=== PATIENT | female | born 1995 | race African-American/Black ===

== ENCOUNTER 2018-07-03 04:25 | Inpatient (IN) ==
[2018-07-03] MEDS ORDERED: fentaNYL Citrate Inj 100 MCG/2 ML Ampul IV.PUSH PRN (05:08)
[2018-07-03] MEDS ORDERED: Penicillin G Potassium Inj 5,000,000 UNIT in Sodium Chloride 0.9% Inj 100 ML IV.SIG ONE (05:08)
[2018-07-03] MEDS ORDERED: Naloxone Inj 0.4 MG/ML Vial IV.PUSH PRN ×2 (05:08→16:54)
[2018-07-03] MEDS ORDERED: Sodium Chlor 0.9% Inj 500 ML IV.SIG PRN (05:08)
[2018-07-03] MEDS ORDERED: Oxytocin 30 Units/500ml Premix 30 UNITS/500 ML BAG IV.SIG ONE (05:08)
[2018-07-03] MEDS ORDERED: Sod Chloride 0.9% Inj 1,000 ML IV.CONT PRN (05:08)
[2018-07-03] MEDS ORDERED: Citric Acid/Sodium Citrate Liq 30 ML UDC PO SCH (05:15)
--- NOTE | 2018-07-03 05:24 | P.HPOB ---
OB - Admission History and Physical Patient Name: Lisy Wilson Date of : 89 Patient Status: Inpatient Attending Provider: Melanie Pena Date: 07/03/18 05:23 Initialization Date: 07/03/18 05:13 History of Present Illness Service: [facility] [place] Primary Care Physician: NOT REQUIRED Chief Complaint: leaking fluid History of Present Illness: This 22 y/o female presents to the OB ED with c/o leaking fluid since approx 1 AM. She has continued to feel leaking so she came in. +FM, No VB, +ctxs every few min. She has hx of short cervix since 24 wks. She was hospitalized at that time and received 2 doses of steroids. She has been using vaginal progesterone. She had initial care with [facility] but then changed to [facility]. Weeks Gestation:: 35 Para: 0 : 1 Review of Systems All other systems reviewed negative except as stated in HPI PMFSH - History History Provided By: Patient - Medical / Surgical Hx Neg / Unobtainable Medical Problems Denied: Yes Surgical History: No Previous Surgery - Social History I have reviewed the patient's Social History: Yes - Tobacco History Smoking Status: Never smoker - Alcohol History How Often Do You Have a Drink Containing Alcohol: Never - Substance Use History Substance History: Past History - Substance Use Type Marijuana Comment: previous positive UDS - Travel History History of Recent Travel: No Medications and Allergies Active Medications: Active Medications Citric Acid/Sodium Citrate (Sodium Citrate/Citric Acid Liq) 30 ml PO TOOL AND DIE REPAIRER [facility] Stop: 07/07/18 05:14 Fentanyl Citrate (Fentanyl Inj) 50 mcg IV.PUSH Q1H PRN PRN Reason: Pain Scale 3 - 5 Fentanyl Citrate (Fentanyl Inj) 100 mcg IV.PUSH Q1H PRN PRN Reason: PAIN SCALE 6 TO 10 Lactated Ringer's (Lr 1000 Ml Inj) 1,000 mls @ 3,000 mls/hr IV.SIG UNSCH PRN PRN Reason: compromise or epidural Lactated Ringer's (Lr 1000 Ml Inj) 1,000 mls @ 125 mls/hr IV.CONT .Q8H [facility] Sodium Chloride (Ns Inj) 500 mls @ 1,000 mls/hr IV.SIG UNSCH PRN PRN Reason: SEE LABEL COMMENTS Sodium Chloride (Ns Inj) 1,000 mls @ 100 mls/hr IV.CONT .Q10H PRN PRN Reason: SEE LABEL COMMENTS Oxytocin (Pitocin 30 Units/Ns 500 Ml Premix) 30 units in 500 mls @ 999 mls/hr IV.SIG BOLUS ONE Stop: 07/03/18 05:38 Penicillin G Potassium 5,000, (000 unit/ Sodium Chloride) 100 mls @ 200 mls/hr IV.SIG ONCE ONE Stop: 07/03/18 05:37 Lidocaine HCl (Xylocaine 1% Inj) 0.1 ml I-DERMAL PRN PRN PRN Reason: For IV start Stop: 07/06/18 05:07 Lidocaine HCl (Xylocaine 1% Inj) 10 ml INFILTRATN PRN PRN PRN Reason: For episiotomy repair Stop: 07/05/18 05:07 Mineral Oil (Muri-Lube Oil) 10 ml TOPICAL PRN PRN PRN Reason: PRN perineal massage Naloxone HCl (Narcan Inj) 0.1 mg IV.PUSH Q2M PRN PRN Reason: for opiate reversal Ondansetron HCl (Zofran Inj) 4 mg IV.PUSH Q6H PRN PRN Reason: NAUSEA OR VOMITING Allergies Allergy/AdvReac Type Severity Reaction Status Date / Time No Known Allergies Allergy Verified 07/03/18 05:07 Exam Vital signs: Vital Signs 07/03/18 05:00 Temperature 98.7 F Pulse Rate 114 H Respiratory Rate 16 Blood Pressure 110/62 Intake & Output 07/02/18 07/02/18 07/03/18 06:59 18:59 06:59 Weight 78.925 kg Narrative: GENERAL: Well-nourished, well-developed patient. SKIN: Warm and dry. HEAD: Normocephalic and atraumatic. EYES: No scleral icterus. No injection or drainage. ENT: No nasal drainage noted. Mucous membranes pink. Airway patent. NECK: Supple, trachea midline. No JVD. CARDIOVASCULAR: Regular rate and rhythm without murmurs, gallops, or rubs. RESPIRATORY: Breath sounds equal bilaterally. No accessory muscle use. BREASTS: Bilateral exam showed no masses , no retractions, no nipple discharge. ABDOMEN/GI: Abdomen soft, non-tender, bowel sounds present, no rebound, no guarding Gravid to [35] weeks size GENITOURINARY: External Genitalia: intact and normal in appearance BUS glands: [normal] Cervix: [Post] Dilatation: [4] Effacement: [70] Station: [-1] Presentation: [vertex] Membranes: [ruptured] Uterine Contractions: [every 1-3 min] FHT's: Category: [1] Baseline: [140] Reactive: [Yes] Variability: [Mod] Decels: [None] +Accels EXTREMITIES: No cyanosis or edema. BACK: Nontender without obvious deformity. No CVA tenderness. NEUROLOGICAL: Awake and alert. Motor and sensory grossly within normal limits. Five out of 5 muscle strength in all muscle groups. Normal speech. Assessment and Plan - Diagnosis (1) PROM (premature rupture of membranes) Code(s): O42.90 - Premature rupture of membranes, unspecified as to length of time between rupture and onset of labor, unspecified weeks of gestation Status : Acute Qualifiers: PROM onset of labor timing: onset of labor within 24 hours of rupture PROM gestational age: -third trimester Qualified Code(s): O42.013 - premature rupture of membranes, onset of labor within 24 hours of rupture, third trimester (2) 35 weeks gestation of Code(s): Z3A.35 - 35 weeks gestation of Status: Acute - Plan Admit to Labor and Delivery Antibiotics Pitocin if needed Anticipate Discharge Plan - Physicians Team ED Provider: Melanie Pena Primary Care Provider: NOT REQUIRED, - Discharge Instructions Print Language: Romansh
[2018-07-03] MEDS: Azithromycin Inj 500 MG in Sodium Chlor 0.9% Inj 250 ML IV.SIG SCH (06:03)
[2018-07-03 06:04] LABS: Bilirubin,Urine Negative (Negative); Clarity,Urine Hazy (Clear); Color,Urine Straw (Yellw/Straw); Glucose,Urine (UA) Negative (Negative); Leukocyte Esterase,Urine Moderate (Negative); Mucus,Urine Few /lpf (Occasional); Nitrite,Urine Negative (Negative); Specific Gravity,Urine 1.005 (1.002-1.035); Squamous Epithelial Cell,Urine 6 /hpf (0-5)
[2018-07-03 06:05] LABS: Baso # (Auto) 0.1 th/mm3 (0.0-0.2); Baso % (Auto) 0.6 % (0.0-2.0); Eos # (Auto) 0.5 th/mm3 (0.0-0.4); Eos % (Auto) 5.2 % (0.0-4.0); Hematocrit 30.1 % (35.0-46.0); Hemoglobin 10.1 gm/dL (11.6-15.3); Lymph # (Auto) 2.4 th/mm3 (1.0-4.8); Lymph % (Auto) 23.2 % (9.0-44.0); Mean Corpuscular HGB Conc 33.7 % (32.0-36.0); Mean Corpuscular Hemoglobin 29.5 pg (27.0-34.0); Mean Corpuscular Volume 87.7 fL (80.0-100.0); Mean Platelet Volume 8.2 fL (7.0-11.0); Mono # (Auto) 0.9 th/mm3 (0.0-0.9); Mono % (Auto) 9.1 % (0.0-8.0); Neut # (Auto) 6.3 th/mm3 (1.8-7.7); Neut % (Auto) 61.9 % (16.0-70.0); Platelet Count 269 th/mm3 (150-450); Red Blood Count 3.43 mil/mm3 (4.00-5.30); Red Cell Distribution Width 12.8 % (11.6-17.2); White Blood Count 10.2 th/mm3 (4.0-11.0)
[2018-07-03] MEDS ORDERED: Oxytocin 30 Units/500ml Premix 30 UNITS/500 ML BAG IV.SIG PRN (07:06)
[2018-07-03] MEDS: Penicillin G Potassium Inj 2,500,000 UNIT in Sodium Chlor 0.9% Inj 100 ML IV.SIG SCH ×3 (09:44→15:38)
[2018-07-03] MEDS: fentaNYL Citrate Inj 100 MCG/2 ML Ampul IV.PUSH PRN ×5 (12:03→16:07)
--- NOTE | 2018-07-03 15:32 | P.OBGPN ---
Attending note: 22-year-old at [id number] is the third time that I have seen the patient today after receiving sign out. Informed by RN for bag present -AROM scant amount of fluid cervix is now 6 cm dilated 100% effaced +1 station with an OP presentation adequate pelvis. Patient and family made aware. Patient declines epidural for pain management. Continue to monitor maternal / status heart rate category 1
[2018-07-03] MEDS ORDERED: Diphtheria/Tetanus/Pertussis Vaccine Inj 0.5 ML Syringe IM ONE (16:00)
[2018-07-03] MEDS ORDERED: Measles/Mumps/Rubella Vaccine Inj 0.5 ML Vial SQ ONE (16:00)
[2018-07-03] MEDS ORDERED: Lidocaine 1% Inj 50 ML Vial ONE (16:16)
--- NOTE | 2018-07-03 16:39 | P.OBDELI ---
Weeks Gestation: 35 Patient Started Active Labor: Yes Artificial Rupture of Membrane: No (AROM - forebag) Anesthesia: Lidocaine local to perineum Episiotomy: none Vaginal Delivery: Normal Presentation: Occiput anterior Nuchal Cord: None Delayed Cord Clamping (45 sec): Yes Placenta: Spontaneous delivery (abruption - 10 %), Uterus explored + Laceration: Vaginal, 1 deg Repair: Chromic running Estimated blood loss (mL): 100 Infant: Female Additional Information: Of note patient did finally agree to anabolic prophylaxis after public relations counselor regarding 2 complications of group B strep. [facility] team present baby most likely going to NICU
[2018-07-03] MEDS ORDERED: Oxytocin 30 Units/500ml Premix 30 UNITS/500 ML BAG IV.CONT PRN (16:54)
[2018-07-03] MEDS ORDERED: Zolpidem Tartrate 5 MG Tablet PO PRN (16:54)
[2018-07-03] MEDS ORDERED: Acetaminophen 325 MG Tablet PO PRN (16:54)
[2018-07-03] MEDS ORDERED: Bisacodyl 10 MG Supp RECTAL PRN (16:54)
[2018-07-03] MEDS: Benzocaine 20% Top Spray 60 ML Can TOPICAL PRN (21:54)
[2018-07-03] MEDS: Witch Hazel 50%/Glyderin 12.5% 40 Pad Jar RECTAL PRN (21:54)
[2018-07-03] MEDS: Senna/Docusate Sodium 8.6/50 MG Tablet PO SCH (21:55)
[2018-07-04] MEDS: Azithromycin Inj 500 MG in Sodium Chlor 0.9% Inj 250 ML IV.SIG SCH (06:21)
--- NOTE | 2018-07-04 07:21 | P.PNOB ---
Subjective Post day: 1 Interval history: Patient is day 1 after spontaneous vaginal delivery. Patient's pain is not well-controlled w/Motrin, states she is having intense pain in her vagina , especially while moving around. Patient reports eating and drinking without any nausea or vomiting. Patient reports minimal bleeding. Patient has passed gas but no bowel movements. Patient is walking without lower extremity pain or shortness of breath. Patient is breast-feeding. Objective Vital Signs/I&O: Vital Signs 07/03/18 07:35 07/03/18 08:26 07/03/18 09:00 Temperature Pulse Rate 109 H 101 H Respiratory Rate 18 Blood Pressure 88/40 L 123/70 07/03/18 09:30 07/03/18 10:40 07/03/18 10:45 Temperature 99.6 F Pulse Rate 125 H Respiratory Rate 18 Blood Pressure 113/84 07/03/18 11:19 07/03/18 12:13 07/03/18 12:15 Temperature 97.4 F L Pulse Rate 97 H 133 H Respiratory Rate 18 Blood Pressure 99/59 L 111/73 07/03/18 13:54 07/03/18 13:57 07/03/18 14:00 Temperature 98.1 F Pulse Rate 99 H Respiratory Rate 18 Blood Pressure 103/57 L 07/03/18 15:11 07/03/18 16:45 07/03/18 16:54 Temperature Pulse Rate 103 H 104 H Respiratory Rate 18 Blood Pressure 105/48 L 117/69 07/03/18 17:00 07/03/18 17:05 07/03/18 17:31 Temperature 98.0 F Pulse Rate 104 H 97 H Respiratory Rate 18 Blood Pressure 103/64 115/76 07/03/18 19:47 Temperature 98.0 F Pulse Rate 101 H Respiratory Rate 20 Blood Pressure 114/66 Intake & Output 07/03/18 07/04/18 07/04/18 18:59 06:59 18:59 Intake Total 1100 / 1100 Balance 1100 / 1100 Intake: IV 1100 / 1100 LR 1000 mL Inj 1,000 ML @ 125 1000 / 1000 mls/hr IV.CONT .Q8H [facility] Rx#: [id number] Pfizerpen-G Inj 2,500,000 UNIT 100 / 100 In NS Inj 100 ML @ 200 mls/hr IV.SIG Q4H [facility] Rx#:[id number] Result Diagrams: 07/03/18 05:30 Objective Remarks: GENERAL: Well-nourished, well-developed patient. CARDIOVASCULAR: Regular rate and rhythm without murmurs, gallops, or rubs. RESPIRATORY: Breath sounds equal bilaterally. No accessory muscle use. ABDOMEN/GI: Abdomen soft, non-tender. Fundus: Firm, non-tender at umbilicus. GENITOURINARY: Light to moderate bleeding. EXTREMITIES: No cyanosis or edema, non-tender, without signs of DVT. Medications and IVs: Active Medications Acetaminophen (Tylenol) 650 mg PO Q4H PRN PRN Reason: PAIN SCALE 1 TO 2 Al Hydroxide/Mg Hydroxide (Milk Of Magnesia Liq) 30 ml PO Q12H PRN PRN Reason: Mild Constipation Benzocaine (Americaine 20% Top [place]) 1 spray TOPICAL Q4H PRN PRN Reason: For Perineum Discomfort Last Admin: 07/03/18 21:54 Dose: 1 spray Bisacodyl (Dulcolax Supp) 10 mg RECTAL DAILY PRN PRN Reason: SEVERE CONSITIPATION Calcium Gluconate (Calcium Gluconate Inj) 1 gm IV.PUSH ONCE PRN PRN Reason: Magnesium toxicity Azithromycin 500 mg/ Sodium (Chloride) 250 mls @ 250 mls/hr IV.SIG Q24H [facility] Stop: 07/05/18 05:59 Last Admin: 07/04/18 06:21 Dose: Not Given Penicillin G Potassium 2,500, (000 unit/ Sodium Chloride) 100 mls @ 200 mls/hr IV.SIG Q4H [facility] Last Admin: 07/03/18 15:38 Dose: 200 mls/hr Oxytocin (Pitocin 30 Units/Ns 500 Ml Premix) 30 units in 500 mls @ 2 mls/hr IV.SIG TITRATE PRN; Protocol PRN Reason: For induction of labor Last Admin: 07/03/18 07:39 Dose: 2 milliunit/min, 2 mls/hr Oxytocin (Pitocin 30 Units/Ns 500 Ml Premix) 30 units in 500 mls @ 100 mls/hr IV.CONT UNSCH PRN PRN Reason: Heavy bleeding Ibuprofen (Motrin) 800 mg PO Q8H PRN PRN Reason: For Cramping Last Admin: 07/04/18 04:45 Dose: 800 mg Lactulose (Lactulose Liq) 30 ml PO DAILY PRN PRN Reason: SEVERE CONSITIPATION Naloxone HCl (Narcan Inj) 0.1 mg IV.PUSH Q2M PRN PRN Reason: for opiate reversal Ondansetron HCl (Zofran Odt) 4 mg PO Q6H PRN PRN Reason: NAUSEA OR VOMITING Senna/Docusate Sodium (Lisa-Colace) 1 tab PO BID [facility] Last Admin: 07/03/18 21:55 Dose: 1 tab Sennosides (Senokot) 17.2 mg PO Q12H PRN PRN Reason: Moderate Constipation Sodium Chloride (Ns Flush) 2 ml IV.FLUSH BID [facility] Last Admin: 07/03/18 21:55 Dose: 2 ml Sodium Chloride (Ns Flush) 2 ml IV.FLUSH PRN PRN PRN Reason: FLUSH AFTER USING IV ACCESS Witch Jazmin/Glycerin (Tucks Pads) 1 applicatio RECTAL QID PRN PRN Reason: HEMORRHOIDS Last Admin: 07/03/18 21:54 Dose: 1 applicatio Zolpidem Tartrate (Ambien) 5 mg PO HS PRN PRN Reason: SLEEP Assessment and Plan - Diagnosis (1) (normal spontaneous vaginal delivery) Code(s): O80 - Encounter for full-term uncomplicated delivery Status: Acute - Plan Patient is day 1 after . Patient was counseled to do 6 weeks of pelvic rest. Patient was counseled to follow up in 6 weeks. Patient requested follow-up and contraception. --AF VSS --Continue routine care --Motrin, ice packs and witch jazmin to perineum, and sitz baths when necessary for pain --Encourage OOB --Pelvic rest for 6 weeks will need follow-up appointment at that time. --Contraception: abstinence for now --Anticipate discharge tomorrow
[2018-07-04] MEDS: Senna/Docusate Sodium 8.6/50 MG Tablet PO SCH ×2 (12:51→20:43)
[2018-07-04 20:12] VITALS: RESP 18
[2018-07-05] MEDS: Witch Hazel 50%/Glyderin 12.5% 40 Pad Jar RECTAL PRN ×2 (03:08→15:45)
[2018-07-05] MEDS: Benzocaine 20% Top Spray 60 ML Can TOPICAL PRN ×2 (03:08→15:45)
[2018-07-05 07:21] VITALS: BP 140/86; PULSE 102; TEMP 98.5
--- NOTE | 2018-07-05 08:53 | P.PNOB ---
Subjective Post day: 2 Interval history: Patient is day 2 after . Patient's pain is well-controlled. Patient reports eating and drinking without any nausea or vomiting. Patient reports minimal bleeding. Patient has passed gas but no bowel movements. Patient is walking without lower extremity pain or shortness of breath. Objective Vital Signs/I&O: Vital Signs 07/04/18 20:00 07/05/18 07:05 Temperature 98.2 F 98.5 F Pulse Rate 69 102 H Respiratory Rate 18 18 Blood Pressure 118/75 140/86 Result Diagrams: 07/03/18 05:30 Objective Remarks: GENERAL: Well-nourished, well-developed patient. CARDIOVASCULAR: Regular rate and rhythm without murmurs, gallops, or rubs. RESPIRATORY: Breath sounds equal bilaterally. No accessory muscle use. ABDOMEN/GI: Abdomen soft, non-tender. Fundus: Firm, non-tender at umbilicus. GENITOURINARY: Light to moderate bleeding. EXTREMITIES: No cyanosis or edema, non-tender, without signs of DVT. Medications and IVs: Active Medications Acetaminophen (Tylenol) 650 mg PO Q4H PRN PRN Reason: PAIN SCALE 1 TO 2 Al Hydroxide/Mg Hydroxide (Milk Of Magnesia Liq) 30 ml PO Q12H PRN PRN Reason: Mild Constipation Benzocaine (Americaine 20% Top [place]) 1 spray TOPICAL Q4H PRN PRN Reason: For Perineum Discomfort Last Admin: 07/05/18 03:08 Dose: 1 spray Bisacodyl (Dulcolax Supp) 10 mg RECTAL DAILY PRN PRN Reason: SEVERE CONSITIPATION Calcium Gluconate (Calcium Gluconate Inj) 1 gm IV.PUSH ONCE PRN PRN Reason: Magnesium toxicity Penicillin G Potassium 2,500, (000 unit/ Sodium Chloride) 100 mls @ 200 mls/hr IV.SIG Q4H [facility] Last Admin: 07/03/18 15:38 Dose: 200 mls/hr Oxytocin (Pitocin 30 Units/Ns 500 Ml Premix) 30 units in 500 mls @ 2 mls/hr IV.SIG TITRATE PRN; Protocol PRN Reason: For induction of labor Last Admin: 07/03/18 07:39 Dose: 2 milliunit/min, 2 mls/hr Oxytocin (Pitocin 30 Units/Ns 500 Ml Premix) 30 units in 500 mls @ 100 mls/hr IV.CONT UNSCH PRN PRN Reason: Heavy bleeding Ibuprofen (Motrin) 800 mg PO Q8H PRN PRN Reason: For Cramping Last Admin: 07/04/18 20:43 Dose: 800 mg Lactulose (Lactulose Liq) 30 ml PO DAILY PRN PRN Reason: SEVERE CONSITIPATION Naloxone HCl (Narcan Inj) 0.1 mg IV.PUSH Q2M PRN PRN Reason: for opiate reversal Ondansetron HCl (Zofran Odt) 4 mg PO Q6H PRN PRN Reason: NAUSEA OR VOMITING Senna/Docusate Sodium (Lisa-Colace) 1 tab PO BID [facility] Last Admin: 07/04/18 20:43 Dose: 1 tab Sennosides (Senokot) 17.2 mg PO Q12H PRN PRN Reason: Moderate Constipation Sodium Chloride (Ns Flush) 2 ml IV.FLUSH BID [facility] Last Admin: 07/04/18 20:42 Dose: Not Given Sodium Chloride (Ns Flush) 2 ml IV.FLUSH PRN PRN PRN Reason: FLUSH AFTER USING IV ACCESS Witch Jazmin/Glycerin (Tucks Pads) 1 applicatio RECTAL QID PRN PRN Reason: HEMORRHOIDS Last Admin: 07/05/18 03:08 Dose: 1 applicatio Zolpidem Tartrate (Ambien) 5 mg PO HS PRN PRN Reason: SLEEP Assessment and Plan - Plan Patient is day 2 after . Patient was counseled to do 6 weeks of pelvic rest. Patient was counseled to follow up in 6 weeks. --Continue routine care --Motrin, ice packs and witch jazmin to perineum, and sitz baths when necessary for pain --Encourage OOB --Pelvic rest for 6 weeks will need follow-up appointment at that time. --Contraception: abstinence for now -- CM consulted for methamphetamine positive UDS on admission. Patient spoke with KRUAP, who is following the case. --Anticipate discharge today
[2018-07-05] MEDS: Senna/Docusate Sodium 8.6/50 MG Tablet PO SCH (09:58)
== END 2018-07-05 16:06 | disposition home or self-care (01) | DRG 806 ==
LOC: HOBED 04:25 → H2E 05:08 → H1EA 18:41 → UNDODISIN 07-05 13:15
PROVIDERS: ADMIT Obstetrics & Gynecology; ATTEND Obstetrics & Gynecology
CPT/HCPCS: 59025; 80307; 81001; 83518; 84112; 85025; 86900; 86901; 87150; 99285; G0481; G0483; J0456; J2540; J2590; J3010; J7050; J7120